=== PATIENT | female | born 1985 | race Caucasian/White ===

== ENCOUNTER → 2020-11-17 09:48 | Outpatient (CLI) | payer OTHER, SELFPAY ==
[2020-11-17 10:58] LABS: Add Manual Diff / Slide Review NO; Basophils Absolute Auto 0 /uL (0-100); Basophils Percent Auto 0.4 % (0-2); Eosinophils Absolute Auto 0 /uL (0-450); Eosinophils Percent Auto 0.5 % (2-4); Hematocrit 43.1 % (36-46); Hemoglobin 14.6 g/dL (12.0-16.0); Lymphocytes Absolute Auto 1100 /uL (1100-4500); Lymphocytes Percent Auto 19.2 % (25-40); Mean Corpuscular HGB Conc 33.8 % (30-36); Mean Corpuscular Hemoglobin 32.6 PG (26-34); Mean Corpuscular Volume 96.3 fL (80-100); Monocytes Absolute Auto 300 /uL (0-900); Monocytes Percent Auto 5.4 % (3-14); Neutrophils Absolute Auto 4400 /uL (1500-7000); Neutrophils Percent Auto 74.5 % (50-75); Platelet Count 130 X10^3/uL (150-400); Red Blood Cell Count 4.48 X10^6/uL (4.0-5.2); Red Cell Distribution Width 11.6 % (11.6-14.8); White Blood Cell Count 5.9 X10^3/uL (4.5-11.0)
[2020-11-17 11:22] LABS: Alanine Aminotransferase 38 IU/L (<35); Albumin 4.6 g/dL (3.5-5.0); Albumin Globulin Ratio 1.8 (1.0-2.8); Alkaline Phosphatase 44 U/L (38-126); Aspartate Aminotransferase 38 IU/L (14-36); BUN Creatinine Ratio 23.6 (6-22); Bilirubin Total 0.8 mg/dL (0.2-1.3); Blood Urea Nitrogen 21 mg/dL (7-17); Calcium 9.5 mg/dL (8.4-10.2); Carbon Dioxide 26 mmol/L (22-32); Chloride 106 mmol/L (98-107); Cholesterol 137 mg/dL (140-199); Estimated Glomerular Filt Rate > 60.0 mL/min (>60); Globulin 2.6 g/dL (1.7-4.1); Glucose 99 mg/dL (70-100); HDL Cholesterol 54 mg/dL (40-60); HEMOLYSIS < 15 (0-50); LDL Cholesterol Calculated 73 mg/dL (<100); Potassium 4.2 mmol/L (3.4-5.1); Sodium 138 mmol/L (137-145); Total Protein 7.2 g/dL (6.3-8.2); Triglycerides 51 mg/dL (35-150)
[2020-11-17 11:39] LABS: Free T4, Direct Thyroxine 1.19 ng/dL (0.78-2.19)
[2020-11-17 11:53] LABS: Thyroid Stimulating Hormone 1.15 uIU/mL (0.47-4.68)
== END ==
PROVIDERS: PCP Registered Nurse; Referring Provider Registered Nurse; Visit Provider Registered Nurse
DX: Z00.00 Encounter for general adult medical examination without abnormal findings (principal); R63.5 Abnormal weight gain; Z82.49 Family history of ischemic heart disease and other diseases of the circulatory system
CPT/HCPCS: 36415; 80053; 80061; 84439; 84443; 85025

== ENCOUNTER → 2020-12-12 08:09 | Outpatient (CLI) | payer OTHER, SELFPAY ==
--- NOTE | 2020-12-12 08:10 | DI.US.S_ITS ---
PROCEDURE: US ABDOMEN LIMITED INDICATIONS: GROIN LUMPS TECHNIQUE: Real-time focused scanning was performed of the abdomen, with image documentation. COMPARISON: None. FINDINGS: There are multiple irregular appearing bilateral inguinal lymph nodes. The largest left inguinal lymph node measures 2.0 x 3.1 x 1.0 centimeters and has cortical thickening and cortical irregularity measuring up to 5.5 millimeters. The largest right inguinal lymph node measures 0.9 x 1.1 x 1.6 centimeters, with cortical thickening up to 4 millimeters. These inguinal nodes demonstrate increased vascularity. IMPRESSION: Bilateral inguinal lymphadenopathy. Findings may be infectious or inflammatory but are worrisome for malignancy. Clinical correlation will be needed. FNA should be considered. Dictated by: Marcus Ahumada M.D. on 12/12/2020 at 8:50 Approved by: Marcus Ahumada M.D. on 12/12/2020 at 8:52
== END ==
PROVIDERS: PCP Registered Nurse; Referring Provider Registered Nurse; Visit Provider Registered Nurse
DX: R19.09 Other intra-abdominal and pelvic swelling, mass and lump (principal); R59.0 Localized enlarged lymph nodes
CPT/HCPCS: 76705

== ENCOUNTER → 2020-12-28 14:40 | Outpatient (CLI) | payer OTHER, SELFPAY ==
--- NOTE | 2020-12-28 | PATH_ITS ---
Note [facility] Accession Number: [id number] TESTS RESULT FLAG UNITS REF RANGE LAB Clinician Provided Cytology Information No. of containers..01 Other (Miscellaneous) No. of containers..04 Previously Prepared Cytology Slide RIGHT GROIN LYMPH NODE DIAGNOSIS: 02 RIGHT GROIN LYMPH NODE INCONCLUSIVE. PLEASE SEE COMMENT. COMMENT: The specimen is somewhat monomorphic and consists predominantly of small, mature lymphocytes. Surgical extirpation for further characterization could be considered, if clincally appropriate. Pathologist ICD10: 02 R59.9 01 FINDINGS: There are multiple irregular appearing bilateral inguinal lymph nodes. The largest left inguinal lymph node measures 2.0 x 3.1 x 1.0 centimeters and has cortical thickening and cortical irregularity measuring up to 5.5 millimeters. The largest right inguinal lymph node measures 0.9 x 1.1 x 1.6 centimeters, with cortical thickening up to 4 millimeters. These inguinal nodes demonstrate increased vascularity. IMPRESSION: Bilateral inguinal lymphadenopathy. Findings may be infectious or inflammatory but are worrisome for malignancy. Clinical correlation will be needed. FNA should be considered. 02 Augusta Johnson MD, Pathologist NPI- [id number] Lalo Barber, Electric [employer] Equipment Mechanic ([facility]) 01 30 CC, COLORLESS, CLEAR RECIEVED: IN CYTOLYT WITH 2 ALCOHOL FIXED AND 2 QUICK STAINED SLIDES. /CARMEN 12/31/2020 0645 [facility] FLAG LEGEND: L-Low Normal,H-High Normal,LL-Alert Low,HH-Alert High <-Panic Low,>-Panic High,A-Abnormal,AA-Critical Abnormal Performed at: 01 =Z [facility] [address], [place] [address] Francisco Robert MD, 02 LCLWA [facility] [address] [place] [id number] Priscila Queen MD, Performed at: 01 [facility] [address], [place], [place] [id number] MD Francisco Robert MD Phone: [phone]
--- NOTE | 2020-12-28 14:41 | DI.US.S_ITS ---
PROCEDURE: US FINE NEEDLE ASPIRATION INDICATIONS: BILATERAL INGUINAL LYMPHADENOPATHY FINE NEEDLE ASPIRATION TECHNIQUE: The indications, alternatives, benefits, risks, and complications of the procedure were explained to the patient. Written informed consent was obtained and placed in the chart. The appearance of the lymph nodes bilaterally has improved, reduced in size, and the patient agree that unilateral right-sided biopsy of the lymph node of concern in that area would be preferred below, rather than bilateral biopsy procedure, especially given the easier access and safer access to the right-sided lymph node of concern. Real-time sonography was utilized to choose the site for percutaneous lymph node sampling. The skin was prepped and draped in the usual sterile fashion. 1% lidocaine was infiltrated down to the site of interest. Serial hypodermic needles were then advanced into the site of interest under direct sonographic visualization, and serial needle aspirates were obtained. The needles were then withdrawn; a bandage was applied to the procedure site. COMPARISON: None. FINDINGS: Sample site(s): Mildly elongated right-sided groin lymph node. This lymph node shows a persistent fatty hilum, and has diminished mildly in size from the prior ultrasound scanning 12/12/20 Needle: . 25 gauge cytology aspiration needles. Number of passes: 5 Medications: 1% lidocaine for local anaesthesia. Complications: None. IMPRESSION: Successful ultrasound-guided right-sided groin lymph node fine needle aspiration, with cytology results pending. On review of the current lymph node imaging prior to biopsy it was noted that the right-sided lymph node was most safely and easily accessible for percutaneous fine needle aspiration. The depth of the groin region and small size of the lymph nodes at this time rendered safe access to the left-sided lymph node limited. Dictated by: Dylon Rosales M.D. on 12/28/2020 at 16:13 Approved by: Dylon Rosales M.D. on 12/28/2020 at 16:16
== END ==
PROVIDERS: PCP Registered Nurse; Referring Provider Registered Nurse; Visit Provider Registered Nurse
DX: R19.09 Other intra-abdominal and pelvic swelling, mass and lump (principal); R59.0 Localized enlarged lymph nodes
CPT/HCPCS: 10005

== ENCOUNTER → 2021-01-01 08:16 | Outpatient (CLI) | payer OTHER, SELFPAY ==
--- NOTE | 2021-01-01 08:16 | DI.US.S_ITS ---
PROCEDURE: US PELVIC COMPLETE INDICATIONS: painful menses/ heavy menses TECHNIQUE: Real-time scanning was performed of the pelvic organs, with image documentation. Additional endovaginal scanning was necessary due to incomplete visualization of the adnexal and endometrial structures by transabdominal scanning. COMPARISON: None. FINDINGS: Uterus: Uterus is normal in size at 7.8 x 4.1 x 5.6 cm. The endometrium measures 9.0 mm in combined thickness. Ovaries: Normal ovaries bilaterally measuring 2.4 x 1.3 x 2.7 cm on the right and 3.5 x 2.4 x 3.1 cm on the left. Simple bilateral follicular cysts present largest measuring up to 2 cm. Other: No pathologic free abdominal or pelvic fluid. IMPRESSION: No source for menorrhagia identified. Dictated by: Jimmy SALGADO Interpreted: Maggy Bravo MD on 01/01/2021 at 8:48 Approved by: Maggy Bravo M.D. on 01/01/2021 at 11:57
== END ==
PROVIDERS: PCP Registered Nurse; Referring Provider Registered Nurse; Visit Provider Registered Nurse
DX: N94.6 Dysmenorrhea, unspecified (principal); N92.0 Excessive and frequent menstruation with regular cycle
CPT/HCPCS: 76830; 76856

== ENCOUNTER → 2021-08-20 15:43 | Outpatient (CLI) | payer OTHER, SELFPAY ==
--- NOTE | 2021-08-20 15:44 | DI.US.S_ITS ---
PROCEDURE: US OB <= 14 WEEKS FETUS INDICATIONS: DATING OUTSIDE/PRIOR DATING DATA: First dating scan (date and location): 08/20/2021. Estimated date of delivery (WILDA) from first dating scan: 04/11/2022. TECHNIQUE: Real-time scanning was performed of the fetus and maternal pelvic organs, with image documentation. Endovaginal scanning was also performed to better visualize the fetus and maternal ovaries. COMPARISON: None. FINDINGS: Embryo: [place]-rump length measures 7 mm corresponding to 6 weeks 4 days. Small perigestational sac bleed site. Heart rate: 133 Measurement variability in dating: +/- 4 weeks by LMP, +/- 7 days by mean sac diameter (use before 6 weeks gestation if crown-rump length not able to be measured), +/- 5 days by crown-rump length (up to 8 weeks 6 days gestation), +/- 7 days by crown-rump length (up to 13 weeks 6 days gestation). Maternal organs: Mild bilateral complex ovarian cyst, largest measuring up to 2.9 cm. IMPRESSION: 6 week 4 day single living IUP and small perigestational sac bleed site measuring 3.0 x 0.4 x 0.4 cm. Mildly complex bilateral ovarian cysts which can be reassessed on follow-up exam. Dictated by: Jimmy SALGADO Interpreted: Maggy Bravo MD on 08/20/2021 at 16:37 Transcribed by: TAVIA on 08/20/2021 at 16:39 Approved by: Maggy Bravo M.D. on 08/20/2021 at 17:19
== END ==
PROVIDERS: PCP Registered Nurse; Referring Provider Obstetrics & Gynecology; Visit Provider Obstetrics & Gynecology
DX: O34.81 Maternal care for other abnormalities of pelvic organs, first trimester (principal); N83.292 Other ovarian cyst, left side; N83.291 Other ovarian cyst, right side
CPT/HCPCS: 76801; 76817

== ENCOUNTER → 2021-08-29 08:10 | Outpatient (CLI) | payer OTHER, SELFPAY ==
[2021-08-29 09:14] LABS: Add Manual Diff / Slide Review NO; Basophils Absolute Auto 0 /uL (0-100); Basophils Percent Auto 0.5 % (0-2); Eosinophils Absolute Auto 0 /uL (0-450); Eosinophils Percent Auto 0.4 % (2-4); Hematocrit 37.2 % (36-46); Hemoglobin 12.6 g/dL (12.0-16.0); Lymphocytes Absolute Auto 1400 /uL (1100-4500); Lymphocytes Percent Auto 20.3 % (25-40); Mean Corpuscular HGB Conc 33.9 % (30-36); Mean Corpuscular Hemoglobin 32.7 PG (26-34); Mean Corpuscular Volume 96.4 fL (80-100); Monocytes Absolute Auto 300 /uL (0-900); Monocytes Percent Auto 4.3 % (3-14); Neutrophils Absolute Auto 5200 /uL (1500-7000); Neutrophils Percent Auto 74.5 % (50-75); Platelet Count 161 X10^3/uL (150-400); Red Blood Cell Count 3.86 X10^6/uL (4.0-5.2); Red Cell Distribution Width 11.8 % (11.6-14.8)
[2021-08-29 10:16] LABS: Appearance Urine UA SL CLOUDY; Bilirubin Urine UA NEGATIVE (NEGATIVE); Color Urine UA YELLOW; Glucose Urine UA NEGATIVE (Negative); Ketones Urine UA NEGATIVE (NEGATIVE); Leukocyte Esterase Urine UA NEGATIVE (NEGATIVE); Nitrite Urine UA NEGATIVE (Negative); Occult Blood Urine UA 3+ (Negative); Protein Urine UA NEGATIVE (Negative); Urobilinogen Urine UA 0.2 E.U./dL (0.2)
[2021-08-29 10:32] LABS: pH Urine UA 6.5 (4.5-8.0)
[2021-08-29 10:39] LABS: Bacteria Urine None Seen; RBC Urine 10-30/HPF (0-5/HPF); WBC Urine None Seen (0-5/HPF)
[2021-08-29 16:27] LABS: Hepatitis B Surface Antigen NEGATIVE s/c (NEGATIVE)
[2021-08-29 16:48] LABS: HIV 1 & 2 Ab/Ag 4th Gen Combo NEGATIVE (NEGATIVE); Hep C Virus Ab w/Reflex Quant NEGATIVE s/c (NEGATIVE)
[2021-08-30 07:48] LABS: RPR Screen Non Reactive (Non Reactive); Varicella IgG Antibody 1261 index (Immune >165)
[2021-09-07 13:41] LABS: Rubella Antibody IgG 27.4 IU/mL (>15)
== END ==
PROVIDERS: PCP Registered Nurse; Referring Provider Obstetrics & Gynecology; Visit Provider Obstetrics & Gynecology
DX: Z34.81 Encounter for supervision of other normal pregnancy, first trimester (principal)
CPT/HCPCS: 36415; 80055; 81003; 81015; 86787; 86803; 86850; 86900; 86901; 87086; 87389

== ENCOUNTER → 2021-09-17 07:50 | Outpatient (CLI) | payer OTHER, SELFPAY ==
[2021-09-17 08:12] LABS: Miscellaneous to LabCorp NATERA
== END ==
PROVIDERS: PCP Registered Nurse; Referring Provider Obstetrics & Gynecology; Visit Provider Obstetrics & Gynecology
DX: O09.511 Supervision of elderly primigravida, first trimester (principal)
CPT/HCPCS: 36415

== ENCOUNTER → 2021-10-31 07:57 | Outpatient (CLI) | payer OTHER, SELFPAY ==
[2021-11-04 13:36] LABS: Gest Age on Col Date 17.6 weeks (.); Gestational Age Ultrasound (.); Insulin Dep Diabetes No (.); OSBR Risk 1IN 8933 (.); Results Report (.); Test Results *Screen Negative* (.)
== END ==
PROVIDERS: PCP Registered Nurse; Referring Provider Obstetrics & Gynecology; Visit Provider Obstetrics & Gynecology
DX: Z34.82 Encounter for supervision of other normal pregnancy, second trimester (principal); Z3A.16 16 weeks gestation of pregnancy
CPT/HCPCS: 36415; 82105

== ENCOUNTER → 2021-11-11 07:44 | Outpatient (CLI) | payer OTHER, SELFPAY ==
--- NOTE | 2021-11-11 07:44 | DI.US.S_ITS ---
PROCEDURE: US OB >= 14 WEEKS FETUS INDICATIONS: ANATOMY OUTSIDE/PRIOR DATING DATA: First dating scan (date and location): 08/20/2021. Estimated date of delivery (WILDA) from first dating scan: 04/11/2022. The calculations are made using the ultrasound WILDA of 04/11/2022. TECHNIQUE: Real-time scanning was performed of the fetus, with image documentation and biometric measurements. Endovaginal scanning: Not performed COMPARISON: [facility], US OB <= 14 WEEKS FETUS, 08/20/2021, 16:12. [facility], , US OB <= 14 WEEKS FETUS, 10/02/2021, 9:56. FINDINGS: General: A single living intrauterine gestation is present. Presentation: Vertex. Placenta: Placental position is posterior, without previa. Amniotic fluid index: 13.9 cm, normal range is 5-24 cm. Single deepest vertical pocket is 3.6 cm. heart rate: 141, 119, 153 beats per minute. Heart rate appears variable through the exam. Maternal cervical canal: 3.1 cm long. Normal lower limit is 2.5 cm. biometrics: Biparietal diameter: 4.2 cm, 18 weeks 4 days Head circumference: 15.1 cm, 18 weeks 1 day Abdominal circumference: 14.6 cm, 19 weeks 6 days Femur length: 2.7 cm, 18 weeks 2 days Clinically estimated gestational age: 18 weeks 3 days Composite gestational age from present scan: 18 weeks 5 days Estimated weight and percentile: 269 g, 80th percentile Anatomic survey: Neuro: Ventricles are non-dilated at less than 10 mm. Cisterna magna is normal at 3-11 mm. Cerebellum is normal in size and morphology. Nuchal skin fold: Normal at less than 6 mm between 14-21 weeks gestational age. Face: Nose and lips, facial profile are normal. Spine: Not well seen. Heart: 4-chambered heart is present, with normal ventricular outflow tracts. Diaphragm: Diaphragm is intact. Stomach: Left-sided stomach is present. Kidneys: No hydronephrosis. Normal is less than 5 mm in 2nd trimester, less than 7 mm in 3rd trimester. Cord: 3-vessel cord has orthotopic insertion. Bladder: Normal in size. Extremities: All 4 extremities identified. IMPRESSION: 1. Courtney living intrauterine at 18 weeks 5 days based on today's ultrasound. This is concordant with the prior ultrasound. There is expected interval growth. Fetus is in the 80th percentile for weight. 2. Normal placenta and amniotic fluid. 3. spine is not well seen. heart rate appears variable throughout the exam. Otherwise normal anatomic survey. We strive to produce accurate, complete, and clear reports of imaging services. To assist us in improving patient care, this report was composed using standard report templates and voice recognition software. Therefore, it may contain abnormal punctuation, insertions and/or omissions. Occasional wrong-word or sound-alike substitutions may occur. Though we review the report and make efforts to correct it, we do recommend that the report be read carefully in proper context to recognize any text inaccuracies. Dictated by: London Leiva M.D. on 11/11/2021 at 9:44 Approved by: London Leiva M.D. on 11/11/2021 at 9:50
== END ==
PROVIDERS: PCP Registered Nurse; Referring Provider Obstetrics & Gynecology; Visit Provider Obstetrics & Gynecology
DX: Z34.82 Encounter for supervision of other normal pregnancy, second trimester (principal); Z3A.18 18 weeks gestation of pregnancy
CPT/HCPCS: 76811

== ENCOUNTER → 2021-11-27 08:22 | Outpatient (CLI) | payer OTHER, SELFPAY ==
[2021-11-27 13:58] LABS: Urine N gonorrhoeae NOT DETECTED
[2021-11-27 14:03] LABS: Urine Chlamydia NOT DETECTED
== END ==
PROVIDERS: PCP Registered Nurse; Visit Provider Obstetrics & Gynecology
DX: Z34.82 Encounter for supervision of other normal pregnancy, second trimester (principal); Z3A.21 21 weeks gestation of pregnancy
CPT/HCPCS: 87491; 87591

== ENCOUNTER → 2021-12-25 08:31 | Outpatient (CLI) | payer OTHER, SELFPAY | PROVIDERS: PCP Registered Nurse; Referring Provider Obstetrics & Gynecology; Visit Provider Obstetrics & Gynecology | DX: R31.9 Hematuria, unspecified (principal); Z34.81 Encounter for supervision of other normal pregnancy, first trimester | CPT/HCPCS: 87086 ==

== ENCOUNTER → 2021-12-28 10:15 | Outpatient (CLI) | payer OTHER, SELFPAY ==
[2021-12-28 11:38] LABS: Hemoglobin 11.9 g/dL (12.0-16.0)
[2021-12-28 11:49] LABS: GTT (PREG) 1 Hour PP 50gm Dose 86 mg/dL (76-139)
== END ==
PROVIDERS: PCP Registered Nurse; Referring Provider Obstetrics & Gynecology; Visit Provider Obstetrics & Gynecology
DX: Z34.82 Encounter for supervision of other normal pregnancy, second trimester (principal); Z3A.25 25 weeks gestation of pregnancy
CPT/HCPCS: 36415; 82950; 85014; 85018

== ENCOUNTER 2022-03-12 10:42 | Outpatient (CLI) | payer OTHER, SELFPAY | END 2022-03-12 11:40 | disposition home or self-care (01) | LOC: OB 03-13 13:43 | PROVIDERS: PCP Registered Nurse; Referring Provider Obstetrics & Gynecology; Visit Provider Obstetrics & Gynecology | DX: O09.513 Supervision of elderly primigravida, third trimester (principal); Z3A.36 36 weeks gestation of pregnancy; Z34.83 Encounter for supervision of other normal pregnancy, third trimester | CPT/HCPCS: 59025; 87653; G0378; G0379 ==

== ENCOUNTER → 2022-03-12 10:52 | Outpatient (CLI) | payer OTHER, SELFPAY ==
[2022-03-13 07:55] LABS: Strep Grp B PCR NEG for Grp B Strep
== END ==
PROVIDERS: PCP Registered Nurse; Visit Provider Obstetrics & Gynecology
DX: Z34.83 Encounter for supervision of other normal pregnancy, third trimester (principal); Z3A.36 36 weeks gestation of pregnancy
CPT/HCPCS: 87653

== ENCOUNTER 2022-03-15 10:09 | Outpatient (CLI) | payer OTHER, SELFPAY ==
--- NOTE | 2022-03-15 10:47 | P.TNLD_ITS ---
Visit Information Visit Information Date of evaluation: 03/15/22 Primary OB Provider: Aissatou Elkins On-call OB Provider: Justino Baer Reason for Evaluation: Yes non-stress test Comments/Additional reasons for admission: Advanced maternal age [facility] Medical History (Updated 03/12/22 @ 10:37 by Aissatou Elkins MD) Chlamydia (~2013) Cystic acne (~1994) Heart murmur Heavy menstrual period Human papilloma virus (~2015) Irregular menstrual cycle Painful menstrual periods Surgical History Anesthesia History of surgery on arm Family History (Updated 08/30/21 @ 14:40 by Mary Jane Correia RN) Father History of heart disease Hypertension Hyperlipidemia Grandfather Stroke Grandfather Parkinson's disease Grandmother Diabetes mellitus Hypertension Hyperlipidemia Family/Other Lymphatic disorder Social History marital status: unmarried,single household members: spouse lives independently: Yes caregiver/support person: No pets and animals: No education level: high school occupational status: employed current occupational exposures/hazards: No seatbelt use: always do you feel safe at home: Yes Smoking Status: Former smoker Tobacco: How many years used: 15 quit status: has quit before second hand exposure: No alcohol intake: never substance use type: does not use during the past year weight has: remained stable well-balanced diet: daily or most days daily servings fruits/ve-4 caffeine: Yes (Had been taking Hydroxycut & energy drinks. ) Type(s) of exercise: weight lifting and running frequency: daily duration: 45-60 minutes/day Evaluation Evaluation Baseline heart rate: 130 Variability: Moderate (11-25) monitor accelerations: Present Monitor Decelerations: Episodic (Isolated variable decelerations w/ prompt return to baseline.) Category of Tracing: Reactive Diagnosis, Plan/Disposition Plan/Disposition Plan: Scheduled for primary for breech 03/19/2022. OB Disposition: home
== END 2022-03-15 10:48 | disposition home or self-care (01) ==
LOC: OB 03-17 16:04
PROVIDERS: PCP Registered Nurse; Referring Provider Obstetrics & Gynecology; Visit Provider Obstetrics & Gynecology
DX: O09.513 Supervision of elderly primigravida, third trimester (principal); O32.1XX0 Maternal care for breech presentation, not applicable or unspecified; Z3A.36 36 weeks gestation of pregnancy
CPT/HCPCS: 59025; G0378; G0379

== ENCOUNTER 2022-03-19 08:50 | Inpatient (IN) | payer OTHER, SELFPAY ==
--- NOTE | 2022-03-19 | PATH_ITS ---
[facility] Accession Number: [id number] . 01 Material submitted: . fallopian tube - BILATERAL FALLOPIAN TUBES . 01 Diagnosis: Bilateral Fallopian Tubes: First described fallopian tube, complete cross-sections; negative for atypia or malignancy. Second described fallopian tube with a benign paratubal cyst (12 mm); complete cross-sections; negative for atypia or malignancy. MRV 03/25/2022 1245 Local . 01 Electronically signed: . Augusta Johnson MD, Pathologist NPI- [id number] . 01 Gross description: . Received in formalin and labeled with the patient's name, designated 1. Bilateral fallopian tubes are two undesignated fimbriated fallopian tubes. The first fallopian tube is 7.0 cm long x 0.7 cm in diameter with a purple-garcia outer surface and attached opened fimbria. The second fallopian tube is 7.0 cm long x 0.7 cm in diameter with a purple-garcia outer surface containing one, 1.2 cm smooth-walled paratubal cyst filled with yellow mucoid material, and attached opened fimbria. No additional lesions are identified. Timber Buyer sections are submitted as follows: . A1: Timber Buyer first fallopian tube with entire fimbria, bisected. A2: Timber Buyer second fallopian tube with entire bisected fimbria. (TEE:[id number]) /[facility] 03/20/2022 1729 Local . 01 Pathologist provided ICD-10: O36.5930, Z3A.38, Z30.2 . 01 CPT . 124790, 715449 Specimen Comment: A courtesy copy of this report has been sent to [phone] Performed at: 01 [facility] [address] [place] [address] [address], [place], [place] [id number] MD Francisco Robert MD Phone: [phone]
[2022-03-19] MEDS: LACTATED RINGERS 1,000 ML 999 ML IV ×2 (09:32→10:19)
--- NOTE | 2022-03-19 09:39 | PM.OBHP.1 ---
OB HPI Date/Time Date of admission: 03/19/22 Date Patient Seen: 03/19/22 Time Patient Seen: 09:40 History of Present Condition Chief complaint: PRIMCARY W/ANTWAN SALPINGECTOMY : 2 Para: 0 Estimated Date of Delivery: 04/07/22 Estimated Gestational Age (weeks): 37+2 Narrative: Riddhi Rose is a 37 year old WILDA 04/11/2022 who is scheduled for a repeat section for breech presentation this afternoon but presents now with regular uterine contractions and cervical dilation to 4 cm necessitating an emergent delivery. course has been complicated by advanced maternal age with normal genetic profile and growth restriction of the infant. GBS is negative. Indications Indication for induction OB: intra-uterine growth restriction Operative indications ( section): breech presentation History of Present care: good care Dating criteria: LMP confirmed by 1st trimester US Ultrasounds: normal 1st trimester US and abnormal US findings (Intrauterine growth restriction) Obstetrical complications: growth restriction Medical complications: other (Advanced maternal age) Preadmission Labs Blood type: A (+) positive -: Antibody screen: negative, GBS status: negative, HBsAG: negative, HIV: negative and RPR/VDLR: negative -: Chlamydia screen: not detected and Gonorrhea screen: not detected -: Rubella: immune and Varicella: immune HCT: 35.0 HCAB: negative PAP: Normal Cell-free DNA: Negative 1 hr GTT: 86 Prior (ies) History: SAB x 1 Evaluation Evaluation Baseline heart rate: 140 Variability: Moderate (11-25) monitor accelerations: Present Monitor Decelerations: Episodic Contraction Frequency (minutes): 7 Uterine Contraction Intensity: Mild Category of Tracing: Reactive Status: Category ll Dilation (cm): 4 Dilation: 3-4 cm Effacement: >/=80% station: -2 Position of cervix: anterior Consistency: soft Saleh score: 10 [facility] Medical History (Updated 03/12/22 @ 10:37 by Aissatou Elkins MD) Chlamydia (~2013) Cystic acne (~1994) Heart murmur Heavy menstrual period Human papilloma virus (~2015) Irregular menstrual cycle Painful menstrual periods Surgical History Anesthesia History of surgery on arm Family History (Updated 08/30/21 @ 14:40 by Mary Jane Correia RN) Father History of heart disease Hypertension Hyperlipidemia Grandfather Stroke Grandfather Parkinson's disease Grandmother Diabetes mellitus Hypertension Hyperlipidemia Family/Other Lymphatic disorder Social History marital status: unmarried,single household members: spouse lives independently: Yes caregiver/support person: No pets and animals: No education level: high school occupational status: employed current occupational exposures/hazards: No seatbelt use: always do you feel safe at home: Yes Smoking Status: Former smoker Tobacco: How many years used: 15 quit status: has quit before second hand exposure: No alcohol intake: never substance use type: does not use during the past year weight has: remained stable well-balanced diet: daily or most days daily servings fruits/ve-4 caffeine: Yes (Had been taking Hydroxycut & energy drinks. ) Type(s) of exercise: weight lifting and running frequency: daily duration: 45-60 minutes/day Meds Home Medications and Allergies Home Medications Medication Instructions Recorded Confirmed Type prenat.vits,nikkie,oqi-qzyw-mdtft 1 tab PO DAILY #90 tab 08/14/21 03/12/22 Rx Allergies Allergy/AdvReac Type Severity Reaction Status Date / Time amoxicillin Allergy Severe throat Verified 03/12/22 09:51 swelling, breathing problems. Penicillins Allergy Severe Throat Verified 03/12/22 09:51 swelling, breathing problems. Review of Systems Review of Systems Narrative: Problem-specific ROS positives included in HPI OB Exam HENMT Head: normal to inspection, normocephalic and atraumatic Eyes General: appearance normal, both eyes and all related structures Resp Effort & Inspection: normal respiratory effort and able to speak in complete sentences Auscultation: clear to auscultation bilaterally Cardio Rate: regular rate Rhythm: regular rhythm Heart Sounds: S1 normal, S2 normal and no murmurs Extremities Lower extremity: Yes normal to inspection Derick's Sign: Right (Negative) GI Inspection: normal to inspection Palpation: Yes soft and Yes no hepatosplenomegaly Uterus Location (Fundal Height): 32 Presentation: effie breech Estimated Weight (lbs): 5 Objective Labs Result Diagrams: 03/19/22 09:30 Assessment and Plan Assessment and Plan Assessment and Plan narrative: ASSESSMENT 1. Intrauterine gestation, Courtney, breech presentation, 37+ 2 weeks gestational age, in early labor 2. Request for sterilization 3. Intrauterine growth restriction 4. Advanced maternal age 5. Penicillin allergy 6. GBS negative status PLAN 1. Admit for delivery by section with bilateral salpingectomy 2. Breech presentation confirmed by a brief bedside ultrasound 3. See admission orders 4. Patient counseled regarding alternatives, risks, benefits, and potential complications associated with primary section and bilateral salpingectomy for sterilization. Patient understands that bilateral salpingectomy is a a procedure which will make her permanently and irreversibly unable to bear children without the benefit of assisted reproductive technology. With full understanding of the above, a written consent for section and bilateral salpingectomy was executed, signed, and witnessed this date.
[2022-03-19 09:43] LABS: Add Manual Diff / Slide Review NO; Basophils Absolute Auto 0 /uL (0-100); Basophils Percent Auto 0.2 % (0-2); Eosinophils Absolute Auto 0 /uL (0-450); Eosinophils Percent Auto 0.1 % (2-4); Hematocrit 40.2 % (36-46); Hemoglobin 13.8 g/dL (12.0-16.0); Lymphocytes Absolute Auto 900 /uL (1100-4500); Lymphocytes Percent Auto 6.6 % (25-40); Mean Corpuscular HGB Conc 34.4 % (30-36); Mean Corpuscular Hemoglobin 33.6 PG (26-34); Mean Corpuscular Volume 97.7 fL (80-100); Monocytes Absolute Auto 300 /uL (0-900); Neutrophils Absolute Auto 12700 /uL (1500-7000); Neutrophils Percent Auto 91.1 % (50-75); Platelet Count 152 X10^3/uL (150-400); Red Blood Cell Count 4.12 X10^6/uL (4.0-5.2); Red Cell Distribution Width 12.1 % (11.6-14.8); White Blood Cell Count 13.9 X10^3/uL (4.5-11.0)
[2022-03-19 09:50] LABS: COVID19 -Nasal RAPID Negative (Negative)
--- NOTE | 2022-03-19 10:06 | PM.PREOP ---
Pre-operative Note COVID-19 COVID-19 status: Negative Result date/Date tested (Pos, Neg/Pending): 03/19/22 Criteria for continued procedure: Non-surgical alternatives not available or appropriate per current SOC Interval Note History & Physical reviewed/Exam performed by Physician: Yes Changes to H&P: No
[2022-03-19] MEDS: CLINDAMYCIN 900 MG/50 ML PIGGYBACK 50 MG IV (10:35)
--- NOTE | 2022-03-19 10:53 | SUR.OPER ---
Supine on Padded OR bed, head on pillow, safety belt at thigh, arms secured on padded arm boards at <90 degrees abduction. Bump under right buttock. Legs uncrossed with pillow under knees, gel pad to heels, tape over blanket to lower legs. Gel pad under bilateral heels and gel pad placed between urinary catheter tubing and patients hamstring.
--- NOTE | 2022-03-19 11:22 | SUR.OPER ---
Viable Baby Girl delivered at 1058. Placenta Delivered. Cord Blood Tubes X2 and Placenta given to L&D RN.
--- NOTE | 2022-03-19 11:58 | P.OP_ITS ---
Operative Date/Time/Diagnoses Date of procedure: 03/19/22 Time of procedure: 09:50 Pre-op diagnosis: Intrauterine gestation, moctezuma, effie breech presentation in labor, 37+2 weeks EGA Request for sterilization Intrauterine growth restriction Advanced maternal age Post-op diagnosis: other (Same as above, delivered) Procedure & Clinicians Procedure: Primary section, low transverse cervical incision Bilateral salpingectomy Same procedure as scheduled: Yes Indications: Riddhi Rose is a 37 year old WILDA 04/11/2022 who is scheduled for a repeat section for breech presentation this afternoon but presents now with regular uterine contractions and cervical dilation to 4 cm necessitating an emergent delivery.? course has been complicated by advanced maternal age with normal genetic profile and growth restriction of the .? GBS is negative. Surgeon: Justino Baer Casting Supervisor: Renee Rosales Reason for Casting Supervisor: Retraction and the timely, effective, and safe performance of this complex pr ocedure. Anesthesia Type: Spinal Operative Notes Findings: Viable female , Apgars /, weight gms. ( lb. oz.). Normal gravid anatomy. 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 The abdomen was prepped and draped in the usual manner for section and a pre-surgical timeout was taken per [facility] OR protocol. Once effective anesthesia was confirmed, a 14 cm transverse Pfannenstiel incision was made in the skin and taken down through the subcutaneous tissues to the deep fascia. The deep fascia was incised transversely, the rectus abdominal eyes bluntly and sharply, and the peritoneal cavity entered without difficulty. The lower uterine segment was visualized and the position/presentation palpated. A transverse incision at or above the vesicouterine reflection was made with Metzenbaum scissors and transverse hysterotomy performed near the midline. Amniotomy revealed meconium stained fluid. The incision was extended bilaterally with digital traction and the infant was delivered without difficulty from thefrank breech presentation. T he was not vigorous at delivery therefore delayed cord clamping not performed and a cord gas sample was obtained. Cord blood for routine studies was obtained. The placenta was delivered intact using gentle cord traction and fundal massage. The uterine cavity was then cleared of any clot/debris first with a sloppy wet lap tape followed by a dry lap tape. Ring forceps were then applied to the angles and the midline of the incised ORION. A primary closure of the uterus was then accomplished with #1 CCGS in a running interlocking stitch followed by a 2nd layer of #1 CCGS in a running interlocking imbricating stitch. No additional sutures were required to achieve complete hemostasis. The patient verbally confirmed her desire for sterilization and bilateral salpingectomy was performed utilizing a Ligasure bipolar device. Once pelvic hemostasis was assured, the bladder flap and anterior peritoneum were closed with running 2-0 Vicryl suture. The fascia was then closed with #1 Vicryl in a running stitch initiated at both angles and tying separately near the midline. The subcutaneous tissues were reapproximated with 2-0 plain Vicryl suture using inverted interrupted stitches. The skin edges were then brought together with 4-0 Monocryl in a subcuticular closure and the incision was reinforced with one inch Steri-Strips. An appropriate AquaCel dressing was applied and the patient transferred to PACU for recovery having tolerated the procedure well. Complications: none Baby 1: Infant Gender: Female Presentation: breech Details: effie Placental Delivery Description: Spontaneous and Expressed Cord Vessel Description: 3 Vessels score (1 min): 6 score (5 min): 7 score (10 min): 9 weight: 4 lb 9.652 oz Post-operative Condition: stable Disposition: PACU Aftercare: routine postop
[2022-03-19 11:59] VITALS: BP 115/61; PULSE 48; RESP 16; TEMP 36.2; O2SAT 97
[2022-03-19 12:04] VITALS: BP 111/51; PULSE 48; RESP 16; O2SAT 97
[2022-03-19 12:10] VITALS: BP 108/63; PULSE 46; RESP 13; O2SAT 98
[2022-03-19 12:15] VITALS: BP 110/63; PULSE 46; RESP 12; TEMP 36.4; O2SAT 99
[2022-03-19] MEDS: LACTATED RINGERS 1,000 ML 100 ML IV ×2 (12:35→18:04)
--- NOTE | 2022-03-19 12:39 | SUR.PHASEI ---
Stable pacu stay, report called, pt transported to room 4 in . Left with Anayeli in stable condition.
[2022-03-19] MEDS: KETOROLAC 30 MG/ML VIAL IV (17:36)
[2022-03-19] MEDS: ONDANSETRON 8 MG in SODIUM CHLORIDE 0.9% 100 ML 208 MG IV (20:01)
[2022-03-20] MEDS: ACETAMINOPHEN 325 MG TABLET 650 MG PO ×4 (04:19→22:31)
[2022-03-20 06:44] LABS: Add Manual Diff / Slide Review NO; Basophils Absolute Auto 100 /uL (0-100); Basophils Percent Auto 0.9 % (0-2); Eosinophils Absolute Auto 0 /uL (0-450); Eosinophils Percent Auto 0.2 % (2-4); Hematocrit 36.7 % (36-46); Hemoglobin 12.8 g/dL (12.0-16.0); Lymphocytes Absolute Auto 2200 /uL (1100-4500); Lymphocytes Percent Auto 20.5 % (25-40); Mean Corpuscular HGB Conc 34.8 % (30-36); Mean Corpuscular Hemoglobin 34.1 PG (26-34); Mean Corpuscular Volume 98.1 fL (80-100); Monocytes Absolute Auto 500 /uL (0-900); Monocytes Percent Auto 4.7 % (3-14); Neutrophils Absolute Auto 8100 /uL (1500-7000); Neutrophils Percent Auto 73.7 % (50-75); Platelet Count 149 X10^3/uL (150-400); Red Blood Cell Count 3.74 X10^6/uL (4.0-5.2)
[2022-03-20] MEDS: KETOROLAC 30 MG/ML VIAL IV ×2 (07:53)
[2022-03-20] MEDS: DOCUSATE 100 MG CAPSULE 200 MG PO (10:58)
[2022-03-20] MEDS: IBUPROFEN 600 MG TABLET PO ×2 (13:49→22:30)
--- NOTE | 2022-03-20 22:04 | PM.OBPN.1 ---
Subjective - OB Subjective Patient comments: no complaints, pain well controlled, tolerating diet and flatus present baby status: doing well feeding status: breast and bottle feeding Date Patient Seen: 03/20/22 Time Patient Seen: 09:45 Interval history: Postop day # 1 status post primary low-transverse section for breech presentation and intrauterine growth restriction. Voided without the catheter. Has showered. Exam Vital Signs (past 8 hours): Oxygen Delivery Method Room Air Narrative Exam Narrative: Generally: Patient walking around in room, no acute distress Lungs: Clear to auscultation bilaterally Cardiovascular: Regular rate and rhythm Abdomen: Soft, appropriately tender. New Fundus: Firm at U -3 Incision: Aquacel dressing that is about half covered with dried blood. The Aquacel dressing was removed and a new 1 was placed. Extremities: Trace edema, negative Homans Objective Labs Result Diagrams: 03/20/22 06:35 Labs: Laboratory Results - last 24 hr 03/20/22 06:35 WBC 11.0 RBC 3.74 L Hgb 12.8 Hct 36.7 MCV 98.1 MCH 34.1 H MCHC 34.8 RDW 12.0 Plt Count 149 L Neut % (Auto) 73.7 Lymph % (Auto) 20.5 L Hamilton % (Auto) 4.7 Eos % (Auto) 0.2 L Baso % (Auto) 0.9 Neut # (Auto) 8100 H Lymph # (Auto) 2200 Hamilton # (Auto) 500 Eos # (Auto) 0 Baso # (Auto) 100 Assessment & Plan Plan day: 2 plan OB: routine postop care Time Spent With Patient Time: Total time spent is greater than 50% in coordination of care (as documented) at patient's floor/unit and/or counseling patient: Time with patient: less than 15 minutes
[2022-03-21] MEDS: IBUPROFEN 600 MG TABLET PO (07:40)
[2022-03-21] MEDS: ACETAMINOPHEN 325 MG TABLET 650 MG PO (07:40)
--- NOTE | 2022-03-21 12:58 | PM.OBDS.1 ---
Discharge Providers Provider Date of admission: 03/19/22 08:50 Discharge Date: 03/21/22 Primary care physician: CHIP Bush Consults: 03/19/22 12:35 Consult to Cer[employer]acitor Processor Routine Comment: Discharge provider: Aissatou Elkins MD Summary Hospital Course Date Patient Seen: 03/21/22 Time Patient Seen: 12:59 Diagnoses: 37-,2/7 weeks gestation Intrauterine growth restriction Breech presentation Primary low-transverse section Hospital Course: Patient is a 37-year-old 2 para 1 who presented on March 19, 2022 in active labor with breech presentation and intrauterine growth restriction. She was scheduled for a primary section later that day. She underwent a primary low-transverse section without complication. has going well. Pain is well controlled with ibuprofen and Tylenol. Bleeding is tapering. She is ambulating without assistance. She has voided without the catheter. She is tolerating a diet. She is discharged home to follow-up at 1 week for an Aquacel dressing removal Peripartum Data Infant Delivery Method: Emergency Section Laceration Description: None Episiotomy description: None Procedures: Spinal anesthesia Primary low-transverse section complications: none 1: Gender: Female Status at Discharge Cognitive/behavioral status at discharge: oriented Functional status at discharge: independent ambulation Overall status at discharge: patient is progressing back to baseline Time Spent with Patient Time attestation: Total time spent providing and/or coordinating discharge services: Time spent: Less than 30 minutes Objective Labs Result Diagrams: 03/20/22 06:35 Exam Vital Signs (past 8 hours): Oxygen Delivery Method Room Air Narrative Exam Narrative: Generally: Patient walking around in room, no acute distress Lungs: Clear to auscultation bilaterally Cardiovascular: Regular rate and rhythm Fundus: Firm at U-3 Incision: Clean dry and intact with Aquacel dressing. No blood stains on the bandage. Extremities: Trace edema, negative Homans Discharge Plan Discharge Plan Patient Disposition: Home Provider Discharge Comment: Call with fever, chills, redness or drainage around the incision, or bleeding vaginally more than a pad in an hour Ibuprofen 600 mg every 6 hours as needed Tylenol 650 mg every 6 hours as needed Discharge orders & Medications Prescriptions: Continued prenat.vits,nikkie,[id number] Tablet 1 tab PO DAILY Qty: 90 3RF Rx Instructions: Take one tablet by mouth daily. Follow up/Referrals: Aissatou Elkins MD [Physician] - 1 Week (Aquacel dressing removal) Diet/Activity/Treatments Diet: Regular Activity: No heavy lifting No lifting more than a gal of milk for the first 2 weeks Skin/Wound/Dressing Care Report to your healthcare provider any signs of infection, such as:: chills, fever, increased pain, unusual drainage and unusual redness Dressing: Do not remove Visit Report/Discharge Packet Instructions: DI for Discharge Data Primary Care Provider: Anita Peacock
== END 2022-03-21 13:35 | disposition home or self-care (01) | DRG 785 ==
PROVIDERS: Obstetrics & Gynecology; Admitting Provider Obstetrics & Gynecology; PCP Registered Nurse; Referring Provider Obstetrics & Gynecology; Visit Provider Obstetrics & Gynecology
PROC: 10D00Z1 Extraction of Products of Conception, Low, Open Approach (ICD-10-PCS; CPT 59514; principal; 2022-03-19 16:00)
DX: O36.5930 Maternal care for other known or suspected poor fetal growth, third trimester, not applicable or unspecified (principal); Z3A.37 37 weeks gestation of pregnancy; Z37.0 Single live birth; Z30.2 Encounter for sterilization; O77.0 Labor and delivery complicated by meconium in amniotic fluid; O32.8XX0 Maternal care for other malpresentation of fetus, not applicable or unspecified; D27.1 Benign neoplasm of left ovary; Z20.822 Contact with and (suspected) exposure to COVID-19
CPT/HCPCS: 36415; 58611; 59050; 59510; 59514; 76815; 85025; 86850; 86900; 86901; 87635; C9803; J1885; J2250; J2274; J2405; J2590; J3010

== ENCOUNTER 2022-03-31 20:46 | Emergency (ER) | payer OTHER, SELFPAY ==
[2022-03-31 20:51] VITALS: BP 134/75; PULSE 70; RESP 18; TEMP 36.6; O2SAT 97; BMI 28.1
--- NOTE | 2022-03-31 21:01 | ED.WOUNDLAC ---
HPI - Wound/Laceration General Chief Complaint: Wound/Laceration Stated Complaint: HAD A C SECTION 03/19/22 OPENED UP Time Seen by Provider: 03/31/22 21:00 Source: patient Mode of arrival: Ambulatory History of Present Illness HPI narrative: 37-year-old female nonsmoker is with recent by Dr. Baer (on 03/19) presents for evaluation of leakage of fluid from her incision site. She states that she has been in her normal state of health and then following postoperative discharge instructions closely. She denies any fever chills nor nausea or vomiting. She has no chest pain or shortness of breath. She denies any heavy lifting. She states that she was in the process of feeding her today when she felt the leakage of fluid and looked down and continued to drip a yellowish fluid from a small opening in the wound at the right side of her incision. There is some surrounding erythema but she denies any significant pain. She is passing gas and having no trouble with bowel movements. She denies dysuria, frequency, urgency or vaginal bleeding or discharge Related Data Previous Rx's Medication Instructions Recorded prenat.vits,nikkie,[id number] 1 tab PO DAILY #90 tab 08/14/21 Allergies Allergy/AdvReac Type Severity Reaction Status Date / Time amoxicillin Allergy Severe throat Verified 03/12/22 09:51 swelling, breathing problems. Penicillins Allergy Severe Throat Verified 03/12/22 09:51 swelling, breathing problems. Review of Systems Review of Systems Narrative: GENERAL: Denies chills, fatigue, malaise, fever, sweats. HEENT: Denies sinus pain, ear pain, sore throat, difficulty swallowing, dizziness. RESPIRATORY: Denies dyspnea, cough, wheezing, hemoptysis, sputum. CARDIOVASCULAR: Denies chest pain, palpitations, orthopnea, edema, GASTROINTESTINAL: Denies nausea, vomiting, abdominal pain, diarrhea, constipation, melena. : Denies dysuria, frequency, incontinence, hematuria, urinary retention. MUSCULOSKELETAL: denies weakness, joint pain, or bony pain SKIN: See HPI NEUROLOGIC: Denies weakness, headache, numbness, change in speech, confusion, seizures, incoordination. PSYCHIATRIC: No concerning psychosocial issues. 12 point review of systems is negative except for those stated above Patient History Medical History Chlamydia (~2013) Cystic acne (~1994) Heart murmur Heavy menstrual period Human papilloma virus (~2015) Irregular menstrual cycle Painful menstrual periods Surgical History Anesthesia History of surgery on arm Family History Father History of heart disease Hypertension Hyperlipidemia Grandfather Stroke Grandfather Parkinson's disease Grandmother Diabetes mellitus Hypertension Hyperlipidemia Family/Other Lymphatic disorder Social History marital status: unmarried,single household members: spouse lives independently: Yes caregiver/support person: No pets and animals: No education level: high school occupational status: employed current occupational exposures/hazards: No seatbelt use: always do you feel safe at home: Yes Smoking Status: Former smoker Tobacco: How many years used: 15 quit status: has quit before second hand exposure: No alcohol intake: never substance use type: does not use during the past year weight has: remained stable well-balanced diet: daily or most days daily servings fruits/ve-4 caffeine: Yes (Had been taking Hydroxycut & energy drinks. ) Type(s) of exercise: weight lifting and running frequency: daily duration: 45-60 minutes/day Smoking Status: Former smoker alcohol intake frequency: 0-2 drinks per day Substance Use Type: does not use Exam Narrative Exam Narrative: GEN: AOx3 and in mild distress EYES: Pupils are equal, round, and reactive to light and accommodation. Extraoccular muscles are intact bilaterally. There is no subconjunctival hemorrhage or exudate. CHEST: Lungs are clear to auscultation bilaterally and free of wheezes, rales, or rhonchi. Heart rate is regular rhythm, there are no murmurs, clicks, rubs, or gallops. There is no chest wall tenderness. ABD: Fresh scar noted with minimal surrounding erythema and minimal if any tenderness. A very small portion of dehisced wound noted at the right side with leakage of serosanguineous fluid which has been cultured Abdomen is soft and nontender. There is no guarding or rebound. Bowel sounds are normal in all 4 quadrants. There is no mass or organomegaly. EXT: Full painless ROM of all extremities with no loss of sensation or strength. SKIN: Warm, pink, and dry. No erythema or rash Initial Vital Signs Initial Vital Signs: Vital Signs Temperature 97.9 F 03/31/22 20:51 Pulse Rate 70 03/31/22 20:51 Respiratory Rate 18 03/31/22 20:51 Blood Pressure 134/75 03/31/22 20:51 Pulse Oximetry 97 03/31/22 20:51 Course Orders Ordered: ED Orders 03/31/22 21:12 Wound Culture and Gram Stain Stat Consultations Consultation #1: On-call OB contacted soon after history and physical, Dr. Duarte will come and see the patient at the bedside, please see her note for details Vital Signs Vital signs: Vital Signs - 8 hr 03/31/22 20:51 Temperature 97.9 F Pulse Rate 70 Respiratory Rate 18 Blood Pressure 134/75 Pulse Oximetry 97 MDM - Wound/Laceration MDM Narrative Medical decision making narrative: Patient with reassuring history and physical exam, small region of dehiscence noted with leakage of serosanguineous fluid Compazine been cultured. She shows no signs of sepsis and has minimal if any pain. There is some erythema but very little in the way of tenderness. Questionable seroma versus infection, OB has seen and evaluated patient at the bedside performing their own evaluation. They have probed the wound and packed it and arrange to see the patient in the office tomorrow. We will hold off on antibiotics, labs or advanced imaging for now given how reassuring her exam is. Return precautions given and questions answered to her apparent satisfaction Discharge Plan Departure Patient Disposition: Home Clinical Impression: section wound complication Activity Restrictions/Additional Instructions: *You have been diagnosed with [drainage from site, wound cultures pending. *What to do: *Please continue to take your regular medications as directed. *Please follow up with with your doctors tomorrow as discussed with Dr. Duarte *Return to Emergency Department if you should have any new, worsening or concerning symptoms Prescriptions: No Action prenat.vits,nikkie,[id number] Tablet 1 tab PO DAILY Qty: 90 3RF Rx Instructions: Take one tablet by mouth daily. Referrals: Danica Duarte MD [Physician] - Anita Peacock ARNP [Primary Care Provider] - Visit Report Forms: Patient Portal/API
--- NOTE | 2022-03-31 21:26 | PC.NURSE ---
Pt reports her surgical incision began leaking while nursing her baby at about 2015 this evening. Serosanguineous fluid noted oozing out from incision. Pt denies pain, fever, N&V.
--- NOTE | 2022-03-31 21:31 | PC.NURSE ---
Dr. Duarte at bedside.
--- NOTE | 2022-03-31 21:56 | P.CONS_ITS ---
History of Present Illness Consult details Date Patient Seen: 03/31/22 Time Patient Seen: 21:56 Chief complaint: HAD A C SECTION 03/19/22 OPENED UP Reason for consult: Wound seroma Requesting provider: Mohamud Wong Narrative: Patient is a 37-year-old 2 para 1 status post primary section with bilateral salpingectomy on 03/19/2022 for breech presentation presenting in active labor at 37 weeks. The patient has been doing well. She had her Aquacel dressing removed 5 days ago. The incision has looked red but was not too uncomfortable. She had a sudden onset of gush of fluid from the incision and presented to the emergency room. Meds Home Medications and Allergies Home Medications Medication Instructions Recorded Confirmed Type prenat.vits,nikkie,[id number] 1 tab PO DAILY #90 tab 08/14/21 03/26/22 Rx Allergies Allergy/AdvReac Type Severity Reaction Status Date / Time amoxicillin Allergy Severe throat Verified 03/12/22 09:51 swelling, breathing problems. Penicillins Allergy Severe Throat Verified 03/12/22 09:51 swelling, breathing problems. Review of Systems Review of Systems Narrative: Patient denies headaches. She denies fevers. She is urinating and ambulating well. She is breast-feeding without difficulty. She denies significant pain. Exam Vital Signs (past 8 hours): - 03/31/22 20:51 Temperature 97.9 F Pulse Rate 70 Respiratory Rate 18 Blood Pressure 134/75 Pulse Oximetry 97 Oxygen Delivery Method Room Air Narrative Exam Narrative: Patient's abdomen is soft, nontender. The uterus is firm, U -3, nontender. The incision has erythema with serosanguineous fluid coming from the incision. The incision area was prepped. A sterile Q-tip was placed through the incision opening and the entire incision was probed. The fascial layer appears to be intact. Gauze packing was placed into the incision. Bandage placed over the incision and taped in place. [facility] Medical History (Updated 03/31/22 @ 22:04 by Danica Duarte MD) Chlamydia (~2013) Cystic acne (~1994) Heart murmur Heavy menstrual period Human papilloma virus (~2015) Irregular menstrual cycle Painful menstrual periods Surgical History Anesthesia History of surgery on arm Family History (Updated 08/30/21 @ 14:40 by Mary Jane Correia RN) Father History of heart disease Hypertension Hyperlipidemia Grandfather Stroke Grandfather Parkinson's disease Grandmother Diabetes mellitus Hypertension Hyperlipidemia Family/Other Lymphatic disorder Social History marital status: unmarried,single household members: spouse lives independently: Yes caregiver/support person: No pets and animals: No education level: high school occupational status: employed current occupational exposures/hazards: No Safety seatbelt use: always do you feel safe at home: Yes Tobacco & Substance Use Smoking Status: Former smoker Tobacco: How many years used: 15 quit status: has quit before second hand exposure: No alcohol intake: never substance use type: does not use Diet and Exercise during the past year weight has: remained stable well-balanced diet: daily or most days daily servings fruits/ve-4 caffeine: Yes (Had been taking Hydroxycut & energy drinks. ) Type(s) of exercise: weight lifting and running frequency: daily duration: 45-60 minutes/day Assessment & Plan Assessment and plan (1) Delivery by section for breech presentation: Problem details: With bilateral salpingectomies Status: Acute (2) section wound seroma, : Status: Acute Assessment & Plan narrative: Patient with draining wound seroma with no evidence of dehiscence. Packing was placed in the defect. Patient is to call the office tomorrow to schedule a follow-up appointment either tomorrow or the next day for evaluation and replacement of the packing. Time Spent With Patient Time with patient: less than 30 minutes Critical Care time: I spent a total of [] minutes of critical care time on this patient's care today; this time is exclusive of procedural time.
--- NOTE | 2022-04-03 09:13 | PC.NURSE ---
04/03 @0900: Wound C&S resulted with +staph. Called Dr Elkins's office and spoke to Sydnie and faxed over copy of report to follow up with pt at her wound check appt today at 1300 for ABX treatment.
== END 2022-03-31 22:10 | disposition home or self-care (01) ==
PROVIDERS: Emergency Provider Emergency Medicine; PCP Registered Nurse
DX: O90.89 Other complications of the puerperium, not elsewhere classified (principal); L76.34 Postprocedural seroma of skin and subcutaneous tissue following other procedure
CPT/HCPCS: 87070; 87075; 87077; 87147; 87186; 87205; 99281; 99282

== ENCOUNTER → 2022-04-30 14:23 | Outpatient (CLI) | payer OTHER, SELFPAY | PROVIDERS: PCP Pediatrics; Visit Provider Obstetrics & Gynecology | DX: O90.89 Other complications of the puerperium, not elsewhere classified (principal); Z51.89 Encounter for other specified aftercare | CPT/HCPCS: 87070; 87075; 87205 ==

== ENCOUNTER → 2022-05-06 10:00 | Outpatient (CLI) | payer OTHER, SELFPAY | PROVIDERS: PCP Pediatrics; Referring Provider Obstetrics & Gynecology; Visit Provider Family Medicine | DX: O90.0 Disruption of cesarean delivery wound (principal) | CPT/HCPCS: 99204; 99213 ==

== ENCOUNTER → 2022-05-12 09:35 | Outpatient (CLI) | payer OTHER, SELFPAY | PROVIDERS: PCP Pediatrics; Referring Provider Obstetrics & Gynecology; Visit Provider Family Medicine | DX: S31.109A Unspecified open wound of abdominal wall, unspecified quadrant without penetration into peritoneal cavity, initial encounter (principal) | CPT/HCPCS: 99213 ==

== ENCOUNTER → 2022-06-04 09:43 | Outpatient (CLI) | payer OTHER, SELFPAY | PROVIDERS: PCP Pediatrics; Referring Provider Obstetrics & Gynecology; Visit Provider Family Medicine | DX: S31.105A Unspecified open wound of abdominal wall, periumbilic region without penetration into peritoneal cavity, initial encounter (principal); T81.31XA Disruption of external operation (surgical) wound, not elsewhere classified, initial encounter | CPT/HCPCS: 11042; 99213 ==